=== PATIENT | male | born 1945 | race Caucasian/White ===

== ENCOUNTER 2018-07-08 18:39 | Inpatient (IN) | payer MEDICARE, OTHER ==
[~2018-07-08] VITALS: Ht 188 cm; Wt 80.7 kg
[2018-07-08 18:40] VITALS: BP 117/72
[2018-07-08] MEDS ORDERED: Ipratropium 0.02% Inh Soln 2.5ml UD HHN ONE (19:00)
[2018-07-08] MEDS ORDERED: Solu-MEDROL 125mg Inj IVP ONE (19:00)
[2018-07-08] MEDS ORDERED: HYDROmorphone 1mg/ml Carpuject IVP ONE (19:00)
[2018-07-08] MEDS: Albuterol ud Inhalation HHN SCH ×3 (19:08→19:44)
[2018-07-08 19:52] LABS: HEMATOCRIT 35.5 % (42.0-52.0); HEMOGLOBIN 11.2 G/DL (14.2-18.0); MEAN CORPUSCULAR VOLUME 112 FL (80-99); PLATELET COUNT 34 K/UL (150-450); RED BLOOD COUNT 3.18 M/UL (4.70-6.10); RED CELL DISTRIBUTION WIDTH 14.6 % (11.6-14.8); WHITE BLOOD COUNT 6.8 K/UL (4.8-10.8)
[2018-07-08 19:58] LABS: INR 1.1 (0.9-1.1)
[2018-07-08] MEDS ORDERED: SENNOSIDES8.6 MG ORAL (20:00)
[2018-07-08] MEDS ORDERED: GUAIFENESIN200 MG ORAL (20:00)
[2018-07-08] MEDS ORDERED: TYLENOL EXTRA500 MG ORAL (20:00)
[2018-07-08] MEDS ORDERED: MS CONTIN100 MG ORAL (20:00)
[2018-07-08] MEDS ORDERED: FUROSEMIDE40 MG ORAL (20:00)
[2018-07-08] MEDS ORDERED: MORPHINE SULFAT30 M4 PO (20:00)
[2018-07-08] MEDS ORDERED: POTASSIUM600 M1 PO (20:00)
[2018-07-08] MEDS ORDERED: CARISOPRODOL350 MG ORAL (20:00)
[2018-07-08] MEDS ORDERED: FOLIC ACID1 MG ORAL (20:00)
[2018-07-08] MEDS ORDERED: STIOLTO RESPIMAT4 GM IH (20:00)
[2018-07-08] MEDS ORDERED: OXYCODONE HCL30 MG ORAL (20:00)
[2018-07-08] MEDS ORDERED: AMITIZA24 MCG ORAL (20:00)
[2018-07-08] MEDS ORDERED: BACTRIM DS TAB1 EAC1 ORAL (20:00)
[2018-07-08] MEDS ORDERED: XARELTO20 MG ORAL (20:00)
[2018-07-08] MEDS ORDERED: LORAZEPAM1 MG ORAL (20:00)
[2018-07-08] MEDS ORDERED: LYRICA200 MG ORAL (20:00)
[2018-07-08] MEDS ORDERED: KENALOG 0.025%15 GM TOPIC (20:00)
[2018-07-08] MEDS ORDERED: NEXIUM40 M2 ORAL (20:00)
[2018-07-08] MEDS ORDERED: FENTANYL1 EAC5 TD (20:00)
[2018-07-08] MEDS ORDERED: NUVIGIL150 MG PO (20:00)
[2018-07-08] MEDS ORDERED: Piperacillin/Tazobactam 3.375 GM in NS 110 ML IVPB ONE (20:00)
[2018-07-08] MEDS ORDERED: DOCUSATE SODIU250 MG ORAL (20:00)
[2018-07-08] MEDS ORDERED: VITAMIN D1000 UNI1 ORAL (20:00)
[2018-07-08] MEDS ORDERED: VITAMIN D250000 UNI1 ORAL (20:00)
[2018-07-08] MEDS ORDERED: TAMSULOSIN HCL0.4 MG ORAL (20:00)
[2018-07-08] MEDS ORDERED: TOPIRAMATE50 MG ORAL (20:00)
[2018-07-08] MEDS ORDERED: DIGOXIN125 MCG ORAL (20:00)
[2018-07-08] MEDS ORDERED: DEXAMETHAS0.5 MG/51 PO (20:00)
[2018-07-08] MEDS ORDERED: LIDODERM700 M1 TOPIC (20:00)
[2018-07-08] MEDS ORDERED: DECADRON2 MG PO (20:00)
[2018-07-08 20:01] LABS: ANION GAP 6 mmol/L (5-15); BLOOD UREA NITROGEN 19 mg/dL (7-18); CALCIUM 10.2 MG/DL (8.5-10.1); CARBON DIOXIDE 35 MMOL/L (21-32); CHLORIDE 102 MMOL/L (98-107); CREATININE 0.8 MG/DL (0.55-1.30); POTASSIUM 4.3 MMOL/L (3.5-5.1); SODIUM 142 MMOL/L (136-145)
[2018-07-08] MEDS ORDERED: ALBUTEROL2.5 MG/3 M INH (20:03)
--- NOTE | 2018-07-08 20:04 | Emergency Room Report ---
History of Present Illness General Chief Complaint: Dyspnea/Respdistress Source: Patient Present Illness HPI Patient presents with dyspnea and chest pain. He rates the pain 10/10 constant. History of lung cancer. He is on Decadron and morphine. The pain is in his right chest radiates to his right shoulder and under his armpit. He's had increased weakness and dyspnea. He is on home oxygen at 4 L. Paramedics transported the patient here. He denies productive cough. The patient is on Xarelto. He denies any bruising or bleeding. He has a history of atrial fibrillation and an aortic aneurysm. No headache, change in vision, vomiting, diarrhea, dysuria, skin rashes. Allergies: Coded Allergies: No Known Allergies (Unverified , 07/08/18) Patient History Past Medical History: see triage record Social History: Denies: smoking Social History Narrative Reviewed Nursing Documentation: PMH: Agreed; PSxH: Agreed Nursing Documentation-PMH Past Medical History: No History, Except For Hx Cardiac Problems: Yes - Aortic aneurysm, A.Fib, Chronic Osteomyelitis Hx Hypertension: Yes - Pulpitis, Secondary malignant neoplasm of tracheobronchial lymph nodes Hx Cancer: Yes - Lung Cx, ILD, GUNJAN, Primary adenosquamous carcinoma of lung Review of Systems All Other Systems: negative except mentioned in HPI Physical Exam Vital Signs Date Time Temp Pulse Resp B/P (MAP) Pulse Ox O2 Delivery O2 Flow Rate FiO2 07/08/18 18:36 98 24 132/84 100 Nasal Cannula 4.0 07/08/18 18:40 98.4 07/08/18 18:58 100 Sp02 EP Interpretation: reviewed, abnormal - Interpreted as low by me General Appearance: well appearing, no apparent distress, GCS 15 Head: normocephalic Eyes: bilateral eye normal inspection, bilateral eye PERRL ENT: moist mucus membranes Neck: supple, no meningismus, no bony tend Respiratory: chest non-tender, lungs clear, normal breath sounds Cardiovascular #1: tachycardia, irregularly irregular Cardiovascular #2: 2+ radial (R) Gastrointestinal: normal inspection, normal bowel sounds, non tender, no mass, non-distended Musculoskeletal: back normal - Lumbar tenderness, normal range of motion Neurologic: alert, oriented x3, grossly normal Psychiatric: depressed affect Skin: normal inspection, warm/dry Medical Decision Making Diagnostic Impression: Primary Impression: Bilateral pneumonia Qualified Codes: J18.9 - Pneumonia, unspecified organism Additional Impressions: Lung cancer Qualified Codes: C34.91 - Malignant neoplasm of unspecified part of right bronchus or lung Atrial fibrillation with RVR Chest pain Qualified Codes: R07.9 - Chest pain, unspecified Back pain Qualified Codes: M54.5 - Low back pain ER Course Patient presents with dyspnea and chest pain history of lung cancer. Differential includes acute myocardial infarction, pulmonary embolus, pneumonia amongst others. Patient will be evaluated with EKG, chest x-ray and labs including blood culture and lactate. Patient retreated with IV hydration, some Medrol, analgesia and breathing treatments. The fact the patient is on anticoagulation pulmonary embolus is less likely. EKG with atrial fibrillation rate 122 with left axis deviation and left ventricular hypertrophy with posterior strain. Chest x-ray with bilateral infiltrates complex mass right upper lobe. White count is normal however there is a left shift. CMP essentially normal. Initial lactate elevated. Improved with breathing treatments and analgesia. Antibiotics begun. Repeat lactate normal. H/O a fib. Diltiazem given for rate. Part of the increased rate may be response to infection. Diltiazem repeated with some improvement in heart rate. Patient improved with treatment however complaining about back pain. Dilaudid is repeated. 6 patient admitted to telemetry to Dr. Jimenez. Laboratory Tests Test 07/08/18 19:21 07/08/18 19:45 07/08/18 21:08 White Blood Count 6.8 K/UL (4.8-10.8) Red Blood Count 3.18 M/UL (4.70-6.10) L Hemoglobin 11.2 G/DL (14.2-18.0) L Hematocrit 35.5 % (42.0-52.0) L Mean Corpuscular Volume 112 FL (80-99) H Mean Corpuscular Hemoglobin 35.2 PG (27.0-31.0) H Mean Corpuscular Hemoglobin Concent 31.6 G/DL (32.0-36.0) L Red Cell Distribution Width 14.6 % (11.6-14.8) Platelet Count 34 K/UL (150-450) L Mean Platelet Volume 11.8 FL (6.5-10.1) H Neutrophils (%) (Auto) % (45.0-75.0) Lymphocytes (%) (Auto) % (20.0-45.0) Monocytes (%) (Auto) % (1.0-10.0) Eosinophils (%) (Auto) % (0.0-3.0) Basophils (%) (Auto) % (0.0-2.0) Differential Total Cells Counted 100 Neutrophils % (Manual) 92 % (45-75) H Lymphocytes % (Manual) 4 % (20-45) L Monocytes % (Manual) 4 % (1-10) Eosinophils % (Manual) 0 % (0-3) Basophils % (Manual) 0 % (0-2) Band Neutrophils 0 % (0-8) Nucleated Red Blood Cells 1 /100 WBC Platelet Estimate Decreased L Platelet Morphology Normal Polychromasia 1+ Anisocytosis 1+ Macrocytosis 2+ Prothrombin Time 11.6 SEC (9.30-11.50) H Prothrombin Time INR 1.1 (0.9-1.1) PTT 31 SEC (23-33) Sodium Level 142 MMOL/L (136-145) Potassium Level 4.3 MMOL/L (3.5-5.1) Chloride Level 102 MMOL/L (98-107) Carbon Dioxide Level 35 MMOL/L (21-32) H Anion Gap 6 mmol/L (5-15) Blood Urea Nitrogen 19 mg/dL (7-18) H Creatinine 0.8 MG/DL (0.55-1.30) Estimate Glomerular Filtration Rate mL/min (>60) Glucose Level 165 MG/DL (74-106) H Lactic Acid Level 2.90 mmol/L (0.4-2.0) H 1.70 mmol/L (0.66-2.22) Calcium Level 10.2 MG/DL (8.5-10.1) H Total Bilirubin 0.3 MG/DL (0.2-1.0) Aspartate Amino Transferase (AST) 24 U/L (15-37) Alanine Aminotransferase (ALT) 24 U/L (12-78) Alkaline Phosphatase 85 U/L (46-116) Total Creatine Kinase 22 U/L (26-308) L Troponin I 0.000 ng/mL (0.000-0.056) Pro-B-Type Natriuretic Peptide 4053 pg/mL (0-125) H Total Protein 8.1 G/DL (6.4-8.2) Albumin 2.7 G/DL (3.4-5.0) L Globulin 5.4 g/dL Albumin/Globulin Ratio 0.5 (1.0-2.7) L Urine Color Pale yellow Urine Appearance Clear Urine pH 5 (4.5-8.0) Urine Specific [place] 1.010 (1.005-1.035) Urine Protein Negative (NEGATIVE) Urine Glucose (UA) Negative (NEGATIVE) Urine Ketones Negative (NEGATIVE) Urine Blood Negative (NEGATIVE) Urine Nitrite Negative (NEGATIVE) Urine Bilirubin Negative (NEGATIVE) Urine Urobilinogen Normal MG/DL (0.0-1.0) Urine Leukocyte Esterase Negative (NEGATIVE) EKG Diagnostic Results Rate: tachycardiac Rhythm: other - Atrial fibrillation ST Segments: other - Strain pattern septally Rhythm Strip Diag. Results EP Interpretation: yes Rhythm: no PVC's, no ectopy, other - atrial fibrillation Chest X-Ray Diagnostic Results Chest X-Ray Diagnostic Results : Chest X-Ray Ordered: Yes # of Views/Limited/Complete: 1 View Indication: Other EP Interpretation: Yes Interpretation: no pneumothorax, other - effusion R, bilat infiltrates Impression: Other Electronically Signed by: Electronically signed by Neal Rodrigues MD Last Vital Signs Date Time Temp Pulse Resp B/P (MAP) Pulse Ox O2 Delivery O2 Flow Rate FiO2 07/09/18 01:16 98 18 Nasal Cannula 4.0 36 07/09/18 01:05 97 07/08/18 23:35 98.4 124/75 Status: improved Disposition: ADMITTED INPATIENT Condition: Serious Referrals: NON PHYSICIAN (PCP) Neal Rodrigues MD Jul 08, 2018 20:04
[2018-07-08 20:12] LABS: ALANINE AMINOTRANSFERASE 24 U/L (12-78); ALBUMIN 2.7 G/DL (3.4-5.0); ALBUMIN/GLOBULIN RATIO 0.5 (1.0-2.7); ALKALINE PHOSPHATASE 85 U/L (46-116); ASPARTATE AMINO TRANSFERASE 24 U/L (15-37); BILIRUBIN,TOTAL 0.3 MG/DL (0.2-1.0); CREATINE KINASE 22 U/L (26-308)
[2018-07-08 20:13] LABS: APPEARANCE,URINE CLEAR; BILIRUBIN, URINE NEGATIVE (NEGATIVE); COLOR,URINE PALE YELLOW; GLUCOSE, URINE (UA) NEGATIVE (NEGATIVE); KETONES,URINE NEGATIVE (NEGATIVE); LEUKOCYTE ESTERASE ,URINE NEGATIVE (NEGATIVE); NITRITE,URINE NEGATIVE (NEGATIVE); PH,URINE 5 (4.5-8.0); PROTEIN,URINE NEGATIVE (NEGATIVE); UROBILINOGEN,URINE NORMAL MG/DL (0.0-1.0)
[2018-07-08] MEDS ORDERED: dilTIAZem HCl 25mg/5ml Inj IVP ONE ×2 (20:15→21:30)
[2018-07-08] MEDS ORDERED: Docusate 250mg cap ORAL PRN (21:45)
[2018-07-08] MEDS ORDERED: Heparin 5000 units/ml inj SUBQ SCH (21:45)
[2018-07-08] MEDS ORDERED: Albuterol/Ipratropium 3ml neb HHN PRN (21:45)
[2018-07-08] MEDS ORDERED: Zolpidem 5mg tab ORAL PRN (21:45)
[2018-07-08] MEDS ORDERED: Milk of Magnesia 30ml Ud ORAL PRN (21:45)
[2018-07-08] MEDS: MS Contin 100mg tab ORAL SCH (22:00)
[2018-07-08] MEDS ORDERED: Morphine Sulfate 4mg/ml Inj (IV/IM USE ONLY) IVP PRN (22:30)
[2018-07-08] MEDS ORDERED: Hydromorphone 0.5mg/0.5ml inj IVP ONE (22:30)
[2018-07-08] MEDS: D5 1/2NS 1,000 ML IV SCH (22:40)
[2018-07-08 22:50] VITALS: BP 123/78
[2018-07-08 23:00] VITALS: BP 120/84
[2018-07-09] VITALS: BP 113/74
[2018-07-09] MEDS: Morphine Sulfate 4mg/ml Inj (IV/IM USE ONLY) IVP PRN ×6 (03:08→22:56)
[2018-07-09] MEDS: D5 1/2NS 1,000 ML IV SCH (04:22)
[2018-07-09] MEDS: Piperacillin/Tazobactam 3.375 GM in NS 110 ML IVPB SCH ×3 (05:54→22:56)
[2018-07-09] MEDS: MS Contin 100mg tab ORAL SCH ×3 (06:10→21:48)
[2018-07-09 08:00] VITALS: BP 112/80
[2018-07-09] MEDS: Digoxin 0.125mg tab ORAL SCH (08:41)
[2018-07-09] MEDS: Aspirin Baby 81mg ORAL SCH (08:41)
[2018-07-09] MEDS: Furosemide 40mg tab ORAL SCH (08:41)
[2018-07-09] MEDS: Albuterol/Ipratropium 3ml neb HHN PRN ×3 (09:38→21:10)
--- NOTE | 2018-07-09 10:32 | History & Physical ---
History and Physical History & Physicial HP dictated # [id number] Chilango Jimenez MD Jul 09, 2018 10:32
--- NOTE | 2018-07-09 10:57 | Diagnostic Imaging Report ---
Indication: Dyspnea Comparison: None A single view chest radiograph was obtained. Findings: Patchy infiltrates demonstrated bilaterally suspicious for pneumonia. There may be chronic interstitial disease or fibrosis underlying. There is also likely scarring in the right upper lobe with thickening of the right apical pleura. Underlying tumor mass not excludable especially in the right perihilar region. Follow-up recommended. Bones are osteopenic. The heart is enlarged. Interpretation of the findings is significantly limited by the absence of prior studies. IMPRESSION: Bilateral pulmonary infiltrates. Follow-up and clinical correlation recommended. Scarring and chronic disease in the right lung. Generalized interstitial prominence may be due to underlying fibrosis.
[2018-07-09 12:00] VITALS: BP 117/79
--- NOTE | 2018-07-09 14:53 | Consultation ---
Consult Note Assessment/Plan DICT # [id number] Austyn Allen MD Jul 09, 2018 14:53
[2018-07-09 16:00] VITALS: BP 125/76
[2018-07-09 20:00] VITALS: BP 158/97
[2018-07-09] MEDS ORDERED: Topiramate 25mg tab ORAL SCH (21:00)
[2018-07-09] MEDS: Topiramate 100mg tab ORAL SCH (21:47)
[2018-07-09] MEDS: Tamsulosin 0.4mg cap ORAL SCH (21:47)
[2018-07-10] VITALS: BP 139/91
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
--- NOTE | 2018-07-10 00:42 | History and Physical Report ---
DATE OF ADMISSION: 07/08/2018 CHIEF COMPLAINT: Shortness of breath and chest pain. HISTORY OF PRESENT ILLNESS: This is a 73-year-old unfortunate white male with history of lung cancer, which was apparently diagnosed in 2016. The patient states that he had partial right lung removal in a [facility]. He is still getting chemotherapy for his cancer and is under care of Dr. Freeman at [facility]. The patient has had chronic dyspnea requiring home oxygen between 2 to 4 liters. Yesterday, he was getting more and more short of breath and he came to the emergency room. PAST MEDICAL HISTORY: Includes history of aortic aneurysm, atrial fibrillation, chronic osteomyelitis, history of obstructive sleep apnea, and primary adenosquamous carcinoma of the lung. MEDICATIONS: Reviewed in the EMR. SOCIAL HISTORY: The patient had a remote history of smoking. He stated he stopped in . No history of alcohol abuse. He lives at home with a friend. ALLERGIES: No known drug allergies. REVIEW OF SYSTEMS: The patient has had some sputum production, has had a cough for a long time. PHYSICAL EXAMINATION: GENERAL: The patient is a 73-year-old male, in no acute distress. VITAL SIGNS: Blood pressure 112/80, pulse 80, temperature 97.2, and respiratory rate 22. HEENT: [place] conjunctivae. Anicteric sclerae. NECK: Supple. LUNGS: Coarse breath sounds bilaterally. HEART: S1, S2 without murmurs or rubs. ABDOMEN: Soft, nontender. EXTREMITIES: Bilateral pedal edema. LABORATORY FINDINGS: The chemistry panel shows serum sodium of 142, potassium 4.3, chloride 102, CO2 35, BUN 19, and creatinine 0.8. CBC shows WBC 6100, hematocrit 35.5, hemoglobin 11.2, and platelets 34,000. ASSESSMENT: This is a 73-year-old male, who is admitted with shortness of breath, possibility of pneumonia, underlying congestive heart failure needs to be ruled out. Unfortunately, I cannot locate his chest x-ray. He has a history of lung cancer and lot of pain medications mostly because of pain in his right shoulder going to arm. He has also thrombocytopenia, etiology was not clear but he just got recently chemotherapy. PLAN: The patient will be on bronchodilators, antibiotics, and oxygen. Pain medication will be prescribed. The patient will be seen by unit receptionist as well as vegetable buncher. An echocardiogram will be obtained to assess his ejection fraction. The patient may need to be diuresed. Labs will be followed. Chilango Jimenez M.D. DR: JENNA JOB#: [id number] CC:
[2018-07-10] MEDS: Morphine Sulfate 4mg/ml Inj (IV/IM USE ONLY) IVP PRN ×8 (01:15→23:34)
[2018-07-10] MEDS: D5 1/2NS 1,000 ML IV SCH ×2 (03:30→14:08)
[2018-07-10 04:00] VITALS: BP 101/62
[2018-07-10] MEDS: Piperacillin/Tazobactam 3.375 GM in NS 110 ML IVPB SCH ×3 (06:16→21:50)
[2018-07-10] MEDS: MS Contin 100mg tab ORAL SCH ×3 (06:17→21:51)
[2018-07-10 08:00] VITALS: BP 123/83
[2018-07-10] MEDS: Aspirin Baby 81mg ORAL SCH (08:13)
[2018-07-10] MEDS: Furosemide 40mg tab ORAL SCH (08:15)
[2018-07-10] MEDS: Digoxin 0.125mg tab ORAL SCH (08:15)
[2018-07-10 08:22] LABS: HEMATOCRIT 31.3 % (42.0-52.0); MEAN CORPUSCULAR VOLUME 110 FL (80-99); PLATELET COUNT 30 K/UL (150-450); RED BLOOD COUNT 2.84 M/UL (4.70-6.10); RED CELL DISTRIBUTION WIDTH 14.5 % (11.6-14.8); WHITE BLOOD COUNT 4.5 K/UL (4.8-10.8)
[2018-07-10 08:31] LABS: ANION GAP 5 mmol/L (5-15); BLOOD UREA NITROGEN 17 mg/dL (7-18); CARBON DIOXIDE 34 MMOL/L (21-32); CHLORIDE 100 MMOL/L (98-107); CREATININE 0.8 MG/DL (0.55-1.30); POTASSIUM 3.6 MMOL/L (3.5-5.1); SODIUM 139 MMOL/L (136-145)
[2018-07-10] MEDS: Albuterol/Ipratropium 3ml neb HHN PRN ×3 (09:17→20:00)
[2018-07-10 11:46] VITALS: BP 115/65
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
--- NOTE | 2018-07-10 14:19 | General Progress Note ---
Assessment/Plan Problem List: (1) CHF (congestive heart failure) ICD Codes: I50.9 - Heart failure, unspecified SNOMED: 53952826 (2) Lung cancer ICD Codes: C34.90 - Malignant neoplasm of unspecified part of unspecified bronchus or lung SNOMED: 165474639 Qualifiers: Qualified Codes: C34.91 - Malignant neoplasm of unspecified part of right bronchus or lung (3) Atrial fibrillation with RVR ICD Codes: I48.91 - Unspecified atrial fibrillation SNOMED: [id number] Assessment/Plan IV lasix breathing treatments Discussed with Dr Garcia started on Eliqius wants to go to [facility]. will discuss with counter caser Subjective Allergies: Coded Allergies: No Known Allergies (Unverified , 07/08/18) Subjective SOB Objective Last 24 Hour Vital Signs Date Time Temp Pulse Resp B/P (MAP) Pulse Ox O2 Delivery O2 Flow Rate FiO2 07/10/18 13:13 78 20 98 Simple Mask 5.0 40 07/10/18 12:13 97.7 07/10/18 12:00 115 07/10/18 11:46 97.7 117 20 115/65 (82) 94 07/10/18 09:18 70 22 97 Nasal Cannula 4.0 36 07/10/18 09:16 97 Nasal Cannula 4.0 36 07/10/18 09:16 Nasal Cannula 4.0 36 07/10/18 09:16 61 22 Nasal Cannula 4.0 36 07/10/18 09:00 Room Air 07/10/18 08:42 97.5 07/10/18 08:15 116 07/10/18 08:00 97.5 116 20 123/83 (96) 94 07/10/18 08:00 100 07/10/18 04:00 97.0 92 17 101/62 (75) 94 07/10/18 04:00 109 07/10/18 00:00 117 07/10/18 00:00 97.5 117 19 139/91 (107) 100 07/09/18 21:18 107 20 98 Nasal Cannula 4.0 36 07/09/18 21:10 Nasal Cannula 4.0 36 07/09/18 21:10 100 22 Nasal Cannula 4.0 36 07/09/18 21:10 100 22 93 Nasal Cannula 4.0 36 07/09/18 21:10 94 Nasal Cannula 4.0 36 07/09/18 21:00 Room Air 07/09/18 20:00 121 07/09/18 20:00 96.5 122 18 158/97 (117) 98 07/09/18 17:20 105 21 96 Nasal Cannula 4.0 36 07/09/18 17:06 110 20 95 Nasal Cannula 4.0 36 07/09/18 16:00 97.5 120 21 125/76 (92) 95 07/09/18 16:00 115 07/09/18 14:24 97.7 Intake and Output 07/09/18 07/10/18 19:00 07:00 Intake Total 600 ml Output Total 700 ml 600 ml Balance -100 ml -600 ml Intake Oral 600 ml Output Urine Total 700 ml 600 ml # Voids 5 Laboratory Tests 07/10/18 06:55: White Blood Count 4.5L, Red Blood Count 2.84L, Hemoglobin 10.0L, Hematocrit 31.3L, Mean Corpuscular Volume 110H, Mean Corpuscular Hemoglobin 35.0H, Mean Corpuscular Hemoglobin Concent 31.8L, Red Cell Distribution Width 14.5, Platelet Count 30L, Mean Platelet Volume 12.3H, Neutrophils (%) (Auto) , Lymphocytes (%) (Auto) , Monocytes (%) (Auto) , Eosinophils (%) (Auto) , Basophils (%) (Auto) , Differential Total Cells Counted 100, Neutrophils % ( Manual) 90H, Lymphocytes % (Manual) 4L, Monocytes % (Manual) 6, Eosinophils % ( Manual) 0, Basophils % (Manual) 0, Band Neutrophils 0, Nucleated Red Blood Cells 1, Platelet Estimate DecreasedL, Platelet Morphology Normal, Macrocytosis 2+, Sodium Level 139, Potassium Level 3.6, Chloride Level 100, Carbon Dioxide Level 34H, Anion Gap 5, Blood Urea Nitrogen 17, Creatinine 0.8, Estimat Glomerular Filtration Rate , Glucose Level 128H, Calcium Level 9.0 Height (Feet): 6 Height (Inches): 2.00 Weight (Pounds): 178 Cardiovascular: normal rate Respiratory/Chest: crackles/rales Chilango Jimenez MD Jul 10, 2018 14:19
[2018-07-10 16:00] VITALS: BP 116/67
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
[2018-07-10] MEDS ORDERED: Eliquis 2.5mg tablet ORAL SCH (18:00)
[2018-07-10 20:00] VITALS: BP 115/70
[2018-07-10] MEDS: Advair 250/50 Inhaler - 14 dose INH SCH (20:00)
[2018-07-10] MEDS: Tamsulosin 0.4mg cap ORAL SCH (20:45)
[2018-07-10] MEDS: Topiramate 100mg tab ORAL SCH (20:45)
[2018-07-10] MEDS ORDERED: Albuterol/Ipratropium 3ml neb HHN SCH (21:00)
[2018-07-10] MEDS ORDERED: Albuterol/Ipratropium 3ml neb HHN PRN (23:45)
[2018-07-11 00:20] VITALS: BP 100/74
[2018-07-11] MEDS: Morphine Sulfate 4mg/ml Inj (IV/IM USE ONLY) IVP PRN ×7 (02:51→21:23)
[2018-07-11] MEDS: D5 1/2NS 1,000 ML IV SCH ×2 (03:51→17:00)
[2018-07-11 04:00] VITALS: BP 109/71
[2018-07-11] MEDS: Albuterol/Ipratropium 3ml neb HHN SCH ×7 (04:00→23:22)
[2018-07-11] MEDS: MS Contin 100mg tab ORAL SCH ×3 (05:28→21:23)
[2018-07-11] MEDS: Piperacillin/Tazobactam 3.375 GM in NS 110 ML IVPB SCH ×3 (05:29→21:23)
[2018-07-11 08:00] VITALS: BP 113/68
[2018-07-11] MEDS ORDERED: Metoprolol Succinate XL 25mg tab ORAL SCH (09:00)
[2018-07-11] MEDS ORDERED: Losartan 25mg tab ORAL SCH (09:00)
[2018-07-11] MEDS: Advair 250/50 Inhaler - 14 dose INH SCH ×2 (09:51→19:48)
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
[2018-07-11 12:00] VITALS: BP 105/71
--- NOTE | 2018-07-11 14:32 | General Progress Note ---
Assessment/Plan Problem List: (1) CHF (congestive heart failure) ICD Codes: I50.9 - Heart failure, unspecified SNOMED: 83038837 (2) Lung cancer ICD Codes: C34.90 - Malignant neoplasm of unspecified part of unspecified bronchus or lung SNOMED: 675323835 Qualifiers: Qualified Codes: C34.91 - Malignant neoplasm of unspecified part of right bronchus or lung (3) Atrial fibrillation with RVR ICD Codes: I48.91 - Unspecified atrial fibrillation SNOMED: 716007420899816 Assessment/Plan IV lasix breathing treatments follow labs Subjective Allergies: Coded Allergies: No Known Allergies (Unverified , 07/08/18) Subjective still SOB Objective Last 24 Hour Vital Signs Date Time Temp Pulse Resp B/P (MAP) Pulse Ox O2 Delivery O2 Flow Rate FiO2 07/11/18 12:00 124 07/11/18 12:00 97.3 102 20 105/71 (82) 99 07/11/18 11:26 101 18 100 Nasal Cannula 4.0 36 07/11/18 11:18 98 20 99 Nasal Cannula 4.0 36 07/11/18 09:52 103 20 97 Nasal Cannula 4.0 36 07/11/18 09:52 103 20 97 Nasal Cannula 4.0 36 07/11/18 09:00 Room Air 07/11/18 08:36 113/68 07/11/18 08:36 73 113/68 07/11/18 08:00 97.5 73 20 113/68 (83) 93 07/11/18 08:00 120 07/11/18 06:40 99 20 99 Nasal Cannula 4.0 36 07/11/18 06:30 99 20 Nasal Cannula 4.0 36 07/11/18 06:30 77 20 99 Nasal Cannula 4.0 36 07/11/18 06:30 99 Nasal Cannula 4.0 36 07/11/18 06:30 Nasal Cannula 4.0 36 07/11/18 05:35 Nasal Cannula 4.0 36 07/11/18 05:34 Nasal Cannula 4.0 36 07/11/18 04:00 105 07/11/18 04:00 97.9 116 16 109/71 (84) 100 07/11/18 00:20 97.3 115 15 100/74 (83) 100 07/11/18 00:00 102 07/10/18 21:00 Room Air 07/10/18 20:09 101 20 97 Nasal Cannula 4.0 36 07/10/18 20:07 101 20 97 Nasal Cannula 4.0 36 07/10/18 20:01 75 20 94 Nasal Cannula 4.0 36 07/10/18 20:00 97.0 104 24 115/70 (85) 96 07/10/18 20:00 118 07/10/18 19:57 75 20 94 Simple Mask 5.0 40 07/10/18 19:56 94 Nasal Cannula 4.0 36 07/10/18 19:56 Nasal Cannula 4.0 36 07/10/18 19:54 65 20 Nasal Cannula 4.0 36 07/10/18 18:45 97.7 07/10/18 16:00 98.0 117 22 116/67 (83) 95 07/10/18 16:00 106 07/10/18 15:07 97.7 Intake and Output 07/10/18 07/11/18 19:00 07:00 Intake Total 1065 ml 120 ml Output Total 2200 ml 1225 ml Balance -1135 ml -1105 ml Intake Oral 240 ml 120 ml IV Total 825 ml Output Urine Total 2200 ml 1225 ml Height (Feet): 6 Height (Inches): 2.00 Weight (Pounds): 178 Cardiovascular: normal rate Respiratory/Chest: lungs clear Edema: 2+ Generalized Chilango Jimenez MD Jul 11, 2018 14:32
--- NOTE | 2018-07-11 15:48 | Cardiology Report ---
APPROVED REPORT EXAM: Two-dimensional and M-mode echocardiogram with Doppler and color Doppler. INDICATION Congestive Heart Failure M-Mode DIMENSIONS IVSd1.2 (0.7-1.1cm)Left Atrium (MM)4.6 (1.6-4.0cm) LVDd5.8 (3.5-5.6cm)Aortic Root4.2 (2.0-3.7cm) PWd1.1 (0.7-1.1cm)Aortic Cusp Exc.2.0 (1.5-2.0cm) LVDs4.5 (2.5-4.0cm) PWs1.5 cm Other Information Technically limited study due to poor acoustic windows. Mild left ventricular enlargement. Global left ventricular hypokinesisa. Anterior wall and inferoseptal akinesia with septal thinning. Ischemic cardiomyopathy can not be excluded. Left ventricular ejection fraction estimated to be 25-30 %. Increased E point-interventricular septal separation c/w left ventricular dysfunction. No evidence of left ventricular hypertrophy. No evidence of pericardial effusion. Moderate bi-atrial enlargement. Right ventricular chamber size is within normal limits. Focal aortic valve sclerosis with adequate cusp excursion. Thickened mitral valve leaflets with normal excursion. Mitral annulus and aortic root calcification. Pulmonic valve not well visualized. Normal tricuspid valve structure. Subcostal views not obtained. A color flow and spectral Doppler study was performed and revealed: Mild to moderate mitral regurgitation. Can not determine left ventricular diastolic function based on mitral diastolic velocities due to atrial fibrillation. Mild to moderate tricuspid regurgitation. Tricuspid systolic velocities suggests peak right ventricular systolic pressure of 40 mmHg, consistent with mild pulmonary hypertension.
[2018-07-11 16:00] VITALS: BP 86/54
[2018-07-11] MEDS ORDERED: Digoxin 0.5mg/2ml Inj IVP SCH (18:00)
[2018-07-11 20:00] VITALS: BP 125/65
[2018-07-11] MEDS: Tamsulosin 0.4mg cap ORAL SCH (20:03)
[2018-07-11] MEDS: Topiramate 100mg tab ORAL SCH (20:03)
[2018-07-12] VITALS: BP 112/69
[2018-07-12] MEDS: Morphine Sulfate 4mg/ml Inj (IV/IM USE ONLY) IVP PRN ×2 (00:09→02:30)
[2018-07-12] MEDS: Albuterol/Ipratropium 3ml neb HHN SCH (02:56)
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
== END 2018-07-12 04:30 | disposition left against medical advice (07) | DRG 194 ==
LOC: EDBD 18:39 → EMR 18:50 → 2E 19:39 → EDBEDREQ 21:54
DX: J18.9 Pneumonia, unspecified organism (principal); C34.11 Malignant neoplasm of upper lobe, right bronchus or lung; Y95 Nosocomial condition; Z79.01 Long term (current) use of anticoagulants; Z90.2 Acquired absence of lung [part of]; I48.91 Unspecified atrial fibrillation; Z87.891 Personal history of nicotine dependence; D69.6 Thrombocytopenia, unspecified; R07.89 Other chest pain; Z79.899 Other long term (current) drug therapy; D64.9 Anemia, unspecified; J44.9 Chronic obstructive pulmonary disease, unspecified; E11.9 Type 2 diabetes mellitus without complications; Z92.3 Personal history of irradiation; E78.5 Hyperlipidemia, unspecified; G25.81 Restless legs syndrome; M72.2 Plantar fascial fibromatosis; I50.9 Heart failure, unspecified
CPT/HCPCS: 36415; 71045; 80048; 80053; 81003; 82550; 83605; 83880; 84484; 85007; 85025; 85610; 85730; 87040; 93306; 94640; 94664; 94760; 96361; 96365; 96368; 96375; 96376; 99285; J2405; J7620